=== PATIENT | male | born 1990 | race Caucasian/White ===

== ENCOUNTER 2017-01-27 05:07 | Emergency (ER) | payer OTHER ==
--- NOTE | 2017-02-02 07:41 | ER ---
ADMIT: 01/27/2017 RM/LOC: ER [facility] MR#: [id number] [address] [id number] MARYJANE CORBETT [address] [place] [id number] Emergency Room Report SEX: M AGE: 26 : 1990 DATE: 01/27/2017 TIME: 0507 hours. PRIMARY CARE: Assigned here, Dr. Bradford. Please refer to my T-sheet for complete H and P. Briefly, the patient is a 26-year-old who comes in for evaluation. He complains of increased short of breath. It was 12 hours. He has a history of asthma. He has taken his Advair with no other current medications. He does not smoke. He has had a little bit of runny nose. PHYSICAL EXAMINATION: VITAL SIGNS: His blood pressure is 157/70, pulse 88, respirations 22, temp 97.5. Sat 100%. GENERAL: No acute distress. HEENT: Mild rhinorrhea, throat clear. NECK: Soft, supple. No real meningismus. LUNGS: Slightly prolonged expiration with expiratory wheezes. HEART: Regular. ABDOMEN: Soft. SKIN: No rash. EMERGENCY DEPARTMENT COURSE: I gave him a DuoNeb, gave him prednisone 40 p.o., gave him an albuterol MDI 2 puffs, so I could send it home with him. He was improved, ready for discharge. ASSESSMENT: 1. Acute asthma exacerbation. 2. He is out of medications. PLAN: Prednisone 20 b.i.d. for 5 days, albuterol q.4 hours p.r.n. Follow up with Dr. Bradford. Return if worse. River Spears MD/ isaias JOB #: [id number] CC: River Spears MD, Attending Physician Ayesha Bradford MD, Family Physician
== END 2017-01-27 05:30 | disposition home or self-care (01) ==
LOC: ER 05:07
DX: J45.901 Unspecified asthma with (acute) exacerbation (principal); Z88.6 Allergy status to analgesic agent; Z79.899 Other long term (current) drug therapy